=== PATIENT | female | born 1955 | race African-American/Black ===

== ENCOUNTER 2019-04-24 13:52 | Emergency (ER) | payer MEDICARE, MEDICAID ==
[~2019-04-24] VITALS: Ht 160 cm; Wt 70.0 kg
[2019-04-24] MEDS ORDERED: SODIUM CHLORIDE 0.9% 1,000 ML IV ONE (14:48)
[2019-04-24] MEDS ORDERED: MORPHINE SULFATE 4 MG/ML CPJ (NOT FOR IM USE) IV STA (14:48)
[2019-04-24] MEDS ORDERED: ONDANSETRON HCL 4MG/2ML INJ IV STA (14:48)
[2019-04-24 15:26] LABS: BASOPHILS % 1.3 % (0.0-2.0); EOSINOPHILS % 2.8 % (0.0-5.0); HEMATOCRIT. 26.9 % (36.0-48.0); HEMOGLOBIN. 9.3 g/dL (12.0-16.0); LYMPHOCYTES % 35.1 % (20.0-50.0); MEAN CORPUSCULAR HEMOGLOBIN 32.2 pg (28.0-32.0); MEAN CORPUSCULAR VOLUME 92.8 fL (81.0-99.0); MEAN PLATELET VOLUME 9.9 fl (7.4-10.4); MONOCYTES % 8.1 % (2.0-8.0); NEUTROPHILS % 52.7 % (40.0-76.0); PLATELET 159 x1000/uL (130-400); RED CELL DISTRIBUTION WIDTH 17.7 % (11.6-14.6)
[2019-04-24 15:31] LABS: CHLORIDE 103 mEq/L (98-107)
[2019-04-24 15:34] LABS: INR 2.5; PROTHROMBIN TIME 24.9 sec (9.6-11.0)
[2019-04-24] MEDS ORDERED: KETOROLAC 15MG/ML VIAL IV NR (15:45)
[2019-04-24] MEDS ORDERED: ACETAMINOPHEN 500MG TABLET PO NR (15:45)
[2019-04-24 16:30] LABS: CLARITY URINE CLEAR (CLEAR); COLOR URINE YELLOW (YELLOW); KETONES URINE NEGATIVE (NEGATIVE); LEUKOCYTE ESTERASE URINE NEGATIVE (NEGATIVE); NITRITE URINE NEGATIVE (NEGATIVE); OCCULT BLOOD URINE NEGATIVE (NEGATIVE); PH URINE 6.5 (4.5-8.0); PROTEIN URINE NEGATIVE (NEGATIVE); SPECIFIC GRAVITY URINE 1.017 (1.005-1.030)
[2019-04-24 18:47] VITALS: BP 120/84
[2019-04-24] MEDS ORDERED: IOHEXOL-300 100 ML BOTTLE ONE (19:04)
[2019-04-28] MEDS ORDERED: amlodipine PO (22:37)
[2019-04-28] MEDS ORDERED: ASPI-1393 MT (22:37)
[2019-04-28] MEDS ORDERED: paroxetine PO (22:37)
[2019-04-28] MEDS ORDERED: LISI40TA4 MT (22:37)
== END 2019-04-24 18:59 | disposition home or self-care (01) ==
LOC: ER 13:52
DX: R10.32 Left lower quadrant pain (principal); R11.10 Vomiting, unspecified; R19.7 Diarrhea, unspecified; D64.9 Anemia, unspecified; R51 Headache
CPT/HCPCS: 36415; 74177; 80053; 81003; 83690; 85025; 85610; 96361; 96374; 96375; 99284; J1885; J2405; J7030; Q9967

== ENCOUNTER 2023-02-21 17:25 | Emergency (ER) | payer OTHER, MEDICAID ==
[~2023-02-21] VITALS: Ht 160 cm; Wt 77.0 kg
[~2023-02-21 17:25] MED LIST: LISI40TA13 MT; amlodipine PO; paroxetine PO
[2023-02-21 17:37] VITALS: BP 139/86; TEMP 98.4; O2SAT 98
[2023-02-21 17:39] VITALS: PULSE 92; RESP 18
[2023-02-21 18:08] LABS: BASOPHILS % 0.5 % (0.0-2.0); CHLORIDE 100 mEq/L (98-107); EOSINOPHILS % 1.8 % (0.0-5.0); HEMATOCRIT. 44.4 % (36.0-48.0); HEMOGLOBIN. 15.3 g/dL (12.0-16.0); LYMPHOCYTES % 22.7 % (20.0-50.0); MEAN CORPUSCULAR HEMOGLOBIN 33.9 pg (28.0-32.0); MEAN CORPUSCULAR VOLUME 98.6 fL (81.0-99.0); MEAN PLATELET VOLUME 8.7 fl (7.4-10.4); PLATELET 291 x1000/uL (130-400); RED BLOOD CELL COUNT 4.51 mill/uL (4.2-5.4); RED CELL DISTRIBUTION WIDTH 12.9 % (11.6-14.6)
== END 2023-02-21 22:04 | disposition left against medical advice (07) ==
LOC: ER 17:25
DX: Z53.21 Procedure and treatment not carried out due to patient leaving prior to being seen by health care provider (principal)
CPT/HCPCS: 36415; 80053; 85025; 99281